=== PATIENT | female | born 1985 | race Caucasian/White ===

== ENCOUNTER 2019-01-09 16:04 | Emergency (ER) | payer SELFPAY ==
[~2019-01-09] VITALS: Ht 172.7 cm; Wt 65.8 kg
[2019-01-09 16:13] VITALS: BP_SYST 101
[2019-01-09] MEDS ORDERED: ONDANSETRON 4 MG ODT TAB PO ONE (16:45)
[2019-01-09] MEDS ORDERED: ACETAMINOPHEN 500 MG TABLET PO ONE (16:45)
[2019-01-09] MEDS ORDERED: KETOROLAC TROMETHAMINE 60 MG/2 ML VIAL IM ONE (18:30)
[2019-01-09 18:42] VITALS: BP_SYST 105
== END 2019-01-09 18:41 | disposition home or self-care (01) ==
LOC: SED 16:04
DX: S16.1XXA Strain of muscle, fascia and tendon at neck level, initial encounter (principal); S09.90XA Unspecified injury of head, initial encounter; R07.89 Other chest pain; F17.210 Nicotine dependence, cigarettes, uncomplicated; Z71.6 Tobacco abuse counseling; V47.6XXA Car passenger injured in collision with fixed or stationary object in traffic accident, initial encounter; Y93.89 Activity, other specified; Y92.89 Other specified places as the place of occurrence of the external cause; Y99.8 Other external cause status
CPT/HCPCS: 70450; 71045; 72125; 81025; 96372; 99284; J1885; Q0162